=== PATIENT | male | born 1955 | race Two or more races ===

== ENCOUNTER 2018-10-15 12:28 | Outpatient (CLI) | payer OTHER ==
[~2018-10-15 12:28] MED LIST: ASA81 MG PO; NABUMETONE500 MG PO; PERCOCET 5/3251 TAB PO
== END 2018-10-15 15:30 | disposition home or self-care (01) ==
LOC: RAD 12:28
DX: M25.561 Pain in right knee (principal); M25.562 Pain in left knee

== ENCOUNTER → 2018-11-20 | Outpatient (CLI) | payer OTHER | END | disposition home or self-care (01) | LOC: RAD 09:00 | DX: R07.89 Other chest pain (principal); Z01.818 Encounter for other preprocedural examination ==

== ENCOUNTER 2021-10-25 09:18 | Outpatient (CLI) | payer OTHER | END 2021-10-25 09:28 | disposition home or self-care (01) | LOC: RAD 09:18 | PROVIDERS: ATTEND Orthopaedic Surgery | DX: M25.561 Pain in right knee (principal); M25.562 Pain in left knee ==

== ENCOUNTER 2021-11-01 08:30 | Outpatient (CLI) | payer OTHER | END 2021-11-01 08:39 | disposition home or self-care (01) | LOC: SONOGRAMA 08:30 | PROVIDERS: ATTEND Orthopaedic Surgery | DX: S83.201A Bucket-handle tear of unspecified meniscus, current injury, left knee, initial encounter (principal) ==

== ENCOUNTER 2022-03-20 07:30 | Inpatient (IN) | payer OTHER ==
[2022-03-20] MEDS ORDERED: LOSARTAN POTASS50 MG PO (08:51)
[2022-03-20] MEDS ORDERED: ATORVASTATIN CA10 MG PO (08:51)
[2022-03-20] MEDS ORDERED: TOPROL XL25 M1 PO (08:51)
== END 2022-03-29 18:21 | disposition home or self-care (01) | DRG 470 ==
LOC: SURG 07:45 → SURH 03-26 05:47 → O/R 03-26 05:47 → SURH 03-26 11:02
PROVIDERS: ADMIT Orthopaedic Surgery; ATTEND Orthopaedic Surgery
PROC: 0SRD0J9 Replacement of Left Knee Joint with Synthetic Substitute, Cemented, Open Approach (ICD-10-PCS; principal; 2022-03-26 10:15)
DX: M17.12 Unilateral primary osteoarthritis, left knee (principal); D62 Acute posthemorrhagic anemia; I25.810 Atherosclerosis of coronary artery bypass graft(s) without angina pectoris; M85.662 Other cyst of bone, left lower leg; Z95.1 Presence of aortocoronary bypass graft; I11.9 Hypertensive heart disease without heart failure; Z96.652 Presence of left artificial knee joint; Z20.822 Contact with and (suspected) exposure to COVID-19